=== PATIENT | female | born 1970 | race Caucasian/White ===

== ENCOUNTER 2017-09-26 10:02 | Emergency (ER) | payer OTHER, SELFPAY ==
[~2017-09-26 10:02] MED LIST: Iopamidol 370 76% 100 ML VIAL ONE
[2017-09-26 11:16] LABS: ALT (SGPT) 9 U/L (8-55); AST (SGOT) 12 U/L (5-34); Albumin 4.1 g/dL (3.5-5.0); Alkaline Phosphatase 72 U/L (40-150); Anion Gap 14 mmol/L (10-20); BUN (Urea Nitrogen) 16 mg/dL (7.0-18.7); Bilirubin, Total 0.2 mg/dL (0.2-1.2); CK (CPK) 36 U/L (29-168); Calc. Creatinine Clearance 0 mL/min (70-130); Calcium 8.7 mg/dL (7.8-10.44); Carbon Dioxide 21 mmol/L (22-29); Chloride 107 mmol/L (98-107); Estimated GFR-MDRD 78; Globulin 3.1 g/dL (2.4-3.5); Glucose 101 mg/dL (70-105); Potassium 4.1 mmol/L (3.5-5.1); Protein, Total 7.2 g/dL (6.0-8.3); Sodium 138 mmol/L (136-145)
[2017-09-26 11:22] LABS: #Monocytes 0.5 thou/uL (0.11-0.59); #Neutrophils 6.3 thou/uL (1.40-6.50); %Basophils 0.4 % (0.0-1.0); %Eosinophils 0.3 % (0.0-10.0); %Lymphocytes 12.2 % (21.0-51.0); %Monocytes 6.2 % (0.0-10.0); %Neutrophils 80.8 % (42.0-75.0); Hemoglobin 12.3 g/dL (12.0-16.0); Mean Corpuscular HGB CONC 34.2 g/dL (32.0-36.0); Mean Corpuscular Hemoglobin 30.3 pg (27.0-31.0); Mean Corpuscular Volume 88.6 fl (81.0-99.0); Mean Platelet Volume 7.4 fL (7.4-10.4); Platelet Count 157 thou/uL (130-400); RBC Distribution Width 11.4 % (11.5-14.5); Red Blood Cell (RBC) Count 4.06 mill/uL (4.20-5.40); White Blood Cell (WBC) Count 7.8 thou/uL (4.8-10.8)
[2017-09-26 11:22] LABS: CKMB 0.5 ng/mL (0-6.6)
[2017-09-26 11:26] LABS: Troponin I 0.017 ng/mL (< 0.028)
[2017-09-26 12:03] LABS: Bilirubin Negative (Negative); Blood, Urine Negative (Negative); Clarity Clear (Clear); Glucose, Urine (Dipstick) Negative (Negative); Leukocyte Negative (Negative); Nitrite Negative (Negative); Protein, Urine (Dipstick) Negative (Neg-Trace); Urobilinogen 0.2 mg/dL (0.2-1.0)
[2017-09-26 12:31] LABS: Amphetamine Not Detected (NotDetected); Barbiturates Screen Not Detected (NotDetected); Benzodiazepine Screen Not Detected (NotDetected); Cocaine Metabolite Screen Not Detected (NotDetected); Medtox Control Line Valid? VALID (VALID); Methadone Not Detected (NotDetected); Methamphetamine Not Detected (NotDetected); Opiate Screen Not Detected (NotDetected); Oxycodone Screen Not Detected (NotDetected); Phencyclidine (PCP) Not Detected (NotDetected); THC/Cannabinoid Screen Not Detected (NotDetected); Tricyclic Screen Not Detected (NotDetected)
[2017-09-26] MEDS ORDERED: Naproxen 500 MG TAB ONE (13:45)
--- NOTE | 2017-09-26 13:48 | RAD ---
2 VIEWS CHEST: Date: 09/26/17 COMPARISON: None. HISTORY: Chest pain. FINDINGS: No pneumothorax or pleural fluid. No focal consolidation or alveolar edema. The lungs are hyperinflat ed suggesting air trapping. Increased linear and interstitial densities noted bilaterally. Question h istory of COPD. IMPRESSION: Chronic appearing findings as described above. No focal consolidation or alveolar edema. POS: [facility]
--- NOTE | 2017-09-26 13:51 | CT ---
CT OF THE ABDOMEN AND PELVIS WITH CONTRAST: Date: 09/26/17 COMPARISON: None. HISTORY: Left flank pain. TECHNIQUE: Multiple contiguous axial images were obtained in a CT of the abdomen and pelvis with contrast. Coron al reformats were performed. FINDINGS: There are radiopaque structures in the spleen which may be from prior splenic procedure. The liver, g allbladder, kidneys, adrenal glands, and pancreas are unremarkable. No free air, free fluid, or stranding changes are seen in the abdomen or pelvis. The large and small bowel are unremarkable. The reproductive organs are unremarkable. No abdominal or pelvic lymphadenopa thy seen. The visualized inferior thorax and abdominal wall soft tissues are unremarkable. IMPRESSION: No evidence of acute intra-abdominal/pelvic abnormality. POS: [facility]
== END 2017-09-26 13:45 | disposition home or self-care (01) ==
LOC: MADERS 10:02
DX: R07.89 Other chest pain (principal); J30.9 Allergic rhinitis, unspecified; R10.12 Left upper quadrant pain; R42 Dizziness and giddiness; F32.9 Major depressive disorder, single episode, unspecified; Z87.891 Personal history of nicotine dependence; Z79.82 Long term (current) use of aspirin; Z79.899 Other long term (current) drug therapy
CPT/HCPCS: 36415; 71046; 74177; 80053; 80306; 81003; 82550; 82553; 84484; 85025; 85379; 93005; 96360; 96361